=== PATIENT | female | born 1935 | race Caucasian/White ===

== ENCOUNTER 2020-02-06 15:01 | Outpatient (CLI) | payer MEDICARE, MEDICAID ==
[~2020-02-06 15:01] MED LIST: Magnevist 469MG/ML 20 ML VIAL ONE
--- NOTE | 2020-02-06 16:29 | MRI ---
MRI Low Ext No Jt Lt W WO Con History: M 79.89 other specified soft tissue disorder Comparison: CT examination January 14, 2020 Findings: Bones: No fracture. No malalignment. No marrow replacement. Cortical and medullary signal i s maintained. Normal proximal and distal tibiofibular alignment. Visualized ankle alignment and the alignment is no rmal. Musculature: No abnormal enhancement. No mass. No significant atrophy. Soft tissues: There is a mild circumferential soft tissue swelling interspersed within the fat septat ions. At the region images marker is a subtle pooling of fluid along the superficial investing musculature fascia and a small fascial defect containing small focus of soleus muscle. The neurovascular musculature is maintained. Low-grade edema within the deep fascia from third spacin g of fluid. Impression: 1. At the region of interest marker is a small superficial musculature investing fascial defect conta ining a small soleus muscle herniation, not clinically significant. 2. Circumferential soft tissue swelling the lower extremity may be sequelae of lymphedema or venous i nsufficiency and less likely cellulitis.
== END 2020-02-06 15:02 | disposition home or self-care (01) ==
LOC: BICMRI 15:01
DX: M79.89 Other specified soft tissue disorders (principal); M62.89 Other specified disorders of muscle
CPT/HCPCS: 82565; A9579

== ENCOUNTER 2020-08-11 19:18 | Inpatient (IN) | payer MEDICARE, MEDICAID ==
--- NOTE | 2020-08-11 21:04 | RAD ---
EXAM: Single view of the chest HISTORY: Unwitnessed fall. Bradycardia COMPARISON: 11/16/2008 FINDINGS: Single view of the chest shows a normal sized cardiomediastinal silhouette. Atheroscleroti c calcifications are seen in the aorta. The patient is status post sternotomy. There may be subtle opacities in the bilateral lower lobes. Degenerative changes are seen in the spine. IMPRESSION: Possible subtle bilateral lower lobe infiltrates.
--- NOTE | 2020-08-11 21:05 | RAD ---
Exam: Single view of the pelvis HISTORY: Pelvic and hip pain after fall COMPARISON: None FINDINGS: A single view the pelvis shows no evidence of acute fracture or dislocation. No degenerativ e changes seen in either hip. Moderate degenerative changes are seen in the lumbar spine. IMPRESSION: No evidence of acute osseous abnormality.
[2020-08-11 21:42] LABS: ALT (SGPT) 26 U/L (8-55); AST (SGOT) 45 U/L (5-34); Albumin 3.4 g/dL (3.4-4.8); Alkaline Phosphatase 65 U/L (40-110); Anion Gap 17 mmol/L (10-20); BUN (Urea Nitrogen) 27 mg/dL (9.8-20.1); Bilirubin, Total 0.3 mg/dL (0.2-1.2); CK (CPK) 26 U/L (29-168); Calc. Creatinine Clearance 0 mL/min (70-130); Calcium 8.8 mg/dL (7.8-10.44); Carbon Dioxide 23 mmol/L (23-31); Chloride 101 mmol/L (98-107); Globulin 3.4 g/dL (2.4-3.5); Glucose 102 mg/dL (83-110); Hemoglobin 12.6 g/dL (12.0-16.0); Mean Corpuscular HGB CONC 32.5 g/dL (32.0-36.0); Mean Corpuscular Hemoglobin 28.3 pg (27.0-31.0); Mean Platelet Volume 10.3 fL (7.4-10.4); Platelet Count 164 thou/uL (130-400); Potassium 4.4 mmol/L (3.5-5.1); Protein, Total 6.8 g/dL (6.0-8.3); RBC Distribution Width 14.4 % (11.5-14.5); Red Blood Cell (RBC) Count 4.46 mill/uL (4.20-5.40); Sodium 137 mmol/L (136-145)
[2020-08-11 22:02] LABS: Band 3 % (5-11); Eosinophils 2 % (0-10); Lymphocytes 25 % (21-51); MDiff Complete? YES; Monocytes 4 % (0-10); Neutrophil 65 % (42-75)
--- NOTE | 2020-08-11 22:08 | CT ---
EXAM: CT brain without contrast HISTORY: Fall with head trauma COMPARISON: 12/19/2008 TECHNIQUE: Multiple contiguous axial images were obtained and a CT of the brain without contrast. FINDINGS: There are scattered hypodensities in the subcortical and periventricular white matter consi stent with small vessel ischemic disease. There is no evidence of hydrocephalus, intracranial hemorrhage, or extra-axial fluid collection. The calvarium and overlying soft tissues are unremarkable. The visualized paranasal sinuses and masto id air cells are well aerated. IMPRESSION: No evidence of acute intracranial abnormality
--- NOTE | 2020-08-11 22:10 | CT ---
EXAM: CT of the cervical spine without contrast HISTORY: Fall with head trauma and neck pain COMPARISON: None TECHNIQUE: Multiple contiguous axial images were obtained in a CT of the cervical spine without contr ast. Sagittal and coronal reformats were performed. FINDINGS: The vertebral bodies and intervertebral discs demonstrate normal height and alignment witho ut fracture or subluxation. Mild degenerative changes are seen in the cervical spine. No prevertebral soft tissue swelling is seen. The posterior facets are well aligned. Normal alignment of the skull base with the cervical spine is seen. There are left carotid calcifications and a stent on the left. There may be postsurgical changes hayley cent to the right internal carotid artery. IMPRESSION: No evidence of acute osseous abnormality of the cervical spine.
--- NOTE | 2020-08-11 22:12 | CT ---
EXAM: CT of the lumbar spine without contrast HISTORY: Low back pain after fall COMPARISON: None TECHNIQUE: Multiple contiguous axial images were obtained in a CT of the lumbar spine without contras t. Sagittal and coronal reformats were performed. FINDINGS: The vertebral bodies demonstrate normal height and alignment without acute fracture or subl uxation. . Moderate degenerative changes are seen throughout the lumbar spine. There is intervertebral disc space narrowing at T12/L1, L1/2, and L4/5 with vacuum phenomenon at these levels. Surrounding osteophytes are seen. Moderate posterior facet arthrosis is seen throughout the lumbar spine. Hyperdensity is seen in the dependent aspect of the gallbladder which may represent gallstones. Ther e is a cyst in the right kidney. Atherosclerotic calcifications are seen in the aorta. There are scattered diverticula in the colon. The paraspinal soft tissues are unremarkable. IMPRESSION: Degenerative changes without evidence of acute osseous abnormality of the lumbar spine.
--- NOTE | 2020-08-12 02:44 | PDOC.HHP ---
Hospitalist HPI - History of Present Illness Fall History of Present Illness: This is an 84-year-old female patient with a history of dementia, A. fib, [place] and hypertension, carotid endarterectomy who was brought in from [facility] on account of an unwitnessed fall. It was unclear whether she had a syncopal event and how long she was down. Patient has dementia and is unable to provide any history. At the time of my evaluation she did not know that she was in the hospital otherwise she was generally stable. She denied any headache chest pain shortness of breath abdominal pain no lower extremity pain. EMS was activated and assessment of her EKG showed bradycardia. On arrival she had a chest x-ray brain CT lumbar CT pelvic cervical CTs were all negative for any acute events. CBC was generally unremarkable BMP had creatinine slightly elevated at 1.24. She was not started on any medications. Hospitalist team was consulted to admit.. Hospitalist ROS - Review of Systems Constitutional: denies: fever, chills, sweats, weakness Respiratory: denies: cough, shortness of breath, hemoptysis Gastrointestinal: denies: nausea, vomiting, abdominal pain Musculoskeletal: denies: neck pain, shoulder pain, arm pain Neurological: denies: weakness, numbness, incoordination All other systems reviewed; all pertinent +/- noted in HPI/Subj - Medication Medications: Medications: Currently refer to ambulatory orders Allergies: Honey, broke Hospitalist History - Past Medical History Other Medical History: Dementia, hypertension, carotid artery disease - Past Surgical History Other Surgical History: Carotid endarterectomy - Family History Family History: reports: no pertinent history - Social History Living Situation: [facility] Results - Labs Result Diagrams: 08/12/20 05:18 08/12/20 05:18 Lab results: WBC 9.0 thou/uL (4.8-10.8) 08/11/20 21:03 Hgb 12.6 g/dL (12.0-16.0) 08/11/20 21:03 Hct 38.8 % (36.0-47.0) 08/11/20 21:03 MCV 87.0 fL (78.0-98.0) 08/11/20 21:03 Plt Count 164 thou/uL (130-400) 08/11/20 21:03 Band Neuts % (Manual) 3 % (5-11) L 12/23/20 21:03 Sodium 137 mmol/L (136-145) 08/11/20 21:03 Potassium 4.4 mmol/L (3.5-5.1) 08/11/20 21:03 Chloride 101 mmol/L (98-107) 08/11/20 21:03 Carbon Dioxide 23 mmol/L (23-31) 08/11/20 21:03 BUN 27 mg/dL (9.8-20.1) H 08/11/20 21:03 Creatinine 1.24 mg/dL (0.6-1.1) H 08/11/20 21:03 Glucose 102 mg/dL (83-110) 08/11/20 21:03 Calcium 8.8 mg/dL (7.8-10.44) 08/11/20 21:03 Total Bilirubin 0.3 mg/dL (0.2-1.2) 08/11/20 21:03 AST 45 U/L (5-34) H 08/11/20 21:03 ALT 26 U/L (8-55) 08/11/20 21:03 Alkaline Phosphatase 65 U/L (40-110) 08/11/20 21:03 Creatine Kinase 26 U/L (29-168) L 08/11/20 21:03 Troponin I 0.010 ng/mL (< 0.028) 08/11/20 21:03 Serum Total Protein 6.8 g/dL (6.0-8.3) 08/11/20 21:03 Albumin 3.4 g/dL (3.4-4.8) 08/11/20 21:03 Hospitalist H&P A/P - Plan Plan: This is an 84-year-old female patient with a history of dementia coronary diseas e and hypertension brought in from [facility] on account of unwitnessed fall. Unwitnessed fall Mechanical versus cardiac arrhythmiahas bradycardia Admit to telemetry Orthostatic vital signs Echocardiogram in a.m. Fall precautions PT in a.m. Arrhythmia/bradycardia EKG shows possible junctional rhythm with bradycardia Monitor on telemetry Hold beta-blockers Cardiology evaluation in a.m. Hypertension BP stable Resume home meds once verified. Coronary artery disease Cardiac no chest pain Resume home meds once verified. S/p carotid endarterectomy This may have to be reevaluated if no reason found for her syncope VT prophylaxis Heparin CODE STATUSfull code
[2020-08-12] MEDS ORDERED: Ondansetron PF 4 MG/2 ML Vial IVP PRN (02:45)
[2020-08-12] MEDS ORDERED: Ondansetron ODT 4 MG TAB SL PRN (02:45)
[2020-08-12] MEDS ORDERED: Acetaminophen 325 MG TAB PO PRN (02:45)
[2020-08-12 03:50] VITALS: BMI 24.4
[2020-08-12 05:32] LABS: #Basophils 0.1 thou/uL (0.0-0.2); #Eosinphils 0.1 thou/uL (0.0-0.7); #Lymphocytes 2.1 thou/uL (1.20-3.40); %Eosinophils 1.4 % (0.0-10.0); %Lymphocytes 25.1 % (21.0-51.0); %Neutrophils 60.5 % (42.0-75.0); Hemoglobin 11.4 g/dL (12.0-16.0); Mean Corpuscular Volume 87.6 fL (78.0-98.0); Platelet Count 157 thou/uL (130-400); RBC Distribution Width 14.3 % (11.5-14.5); Red Blood Cell (RBC) Count 4.06 mill/uL (4.20-5.40); White Blood Cell (WBC) Count 8.3 thou/uL (4.8-10.8)
[2020-08-12 05:56] LABS: Anion Gap 13 mmol/L (10-20); BUN (Urea Nitrogen) 30 mg/dL (9.8-20.1); Calc. Creatinine Clearance 30 mL/min (70-130); Calcium 8.7 mg/dL (7.8-10.44); Carbon Dioxide 29 mmol/L (23-31); Chloride 101 mmol/L (98-107); Glucose 92 mg/dL (83-110); Potassium 3.9 mmol/L (3.5-5.1); Sodium 139 mmol/L (136-145)
[2020-08-12] MEDS: Sodium Chloride 0.9% 1,000 ML IV SCH (08:43)
[2020-08-12] MEDS: Heparin 5,000 UNITS/ML VIAL SC SCH ×3 (08:44→20:52)
[2020-08-12 09:50] LABS: SARS-CoV-2 MS2 Positive; SARS-CoV-2 N Gene Positive; SARS-CoV-2 S Gene Positive; SARS-CoV-2 by NAA DETECTED (NotDetected); SARS-CoV-2 orf1ab Positive
--- NOTE | 2020-08-12 11:49 | CON ---
DATE OF CONSULTATION: SUBJECTIVE: Patient is an 84-year-old woman who presented after having a fall and was noted to have a slow heart rate. The patient has a long history of coronary artery disease. She is status post coronary artery bypass graft surgery in 1998. She also has had a history of left carotid stent. The patient is unable to give any coherent history and suffers from dementia. The patient apparently was admitted with a fall. She was noted to have a slow heart rate. The patient denies having any chest discomfort. PAST MEDICAL HISTORY: 1. Cerebrovascular disease. 2. Coronary artery disease. 3. Dementia. 4. Hypertension. PAST SURGICAL HISTORY: Coronary bypass surgery,and carotid endarterectomy. MEDICATIONS: 1. Synthroid 50 mcg daily. 2. Sertraline 100 daily. 3. Potassium 10 daily. 4. Melatonin 3 at bedtime. 5. Gabapentin 100 daily. 6. Lasix 20 daily. 7. Amlodipine 5 daily. 8. Aspirin 81 daily. 9. Atenolol 50 daily. REVIEW OF SYSTEMS: Not obtainable. FAMILY HISTORY: Not obtainable. ALLERGIES: BROCCOLI AND HONEY. PHYSICAL EXAMINATION: GENERAL: Confused woman, alert and oriented x1. VITAL SIGNS: Blood pressure is 147/66 sitting, standing it dropped to 113/68. NECK: Showed no jugular venous distention. LUNGS: Clear to auscultation. HEART: Regular rate and rhythm. Normal S1, S2. ABDOMEN: Nondistended. EXTREMITIES: Show no edema. LABORATORY DATA: Sodium 139, potassium 3.9, chloride 101, bicarbonate 29, BUN 30, creatinine 1.3. White blood cell count 8.3, hemoglobin 11.4, hematocrit 35.6, and platelets 157. EKG junctional rhythm with occasional premature ventricular contractions with a nonspecific T-wave abnormality. IMPRESSION: 1. Bradycardia. 2. History of coronary bypass graft surgery. 3. Carotid endarterectomy. 4. Dementia. 5. Orthostatic hypotension. PLAN: This patient had a fall. It appears that she has significant orthostatic hypotension. The patient with her slow heart rate should be taken off atenolol. I would consider decreasing the dose of her amlodipine as well. The patient should be monitored on telemetry. She should also be placed on lipid-lowering medication. We will follow this patient with you throughout her hospitalization. Job ID: [id number] [facility]
--- NOTE | 2020-08-12 15:55 | PDOC.BPN ---
- Brief Progress Note Encounter Date: 08/12/20 Encounter Time: 15:54 Patient was seen and evaluated earlier today. This is an 84-year-old detention resident who reportedly had a fall and was brought to the hospital as a result. The fall was unwitnessed apparently. Since being admitted she has had multiple CTs and x-rays that did not show any acute findings. Her laboratory evaluation was completely normal. She was orthostatic on her vital signs. Cardiology was asked to evaluate her. They recommend optimization of her medications prior to discharge. I will get PT to work with her. We will make further recommendations as the hospital course progresses.
[2020-08-12] MEDS: Calcium Carbonate 600 MG + Vit D TAB PO SCH (20:52)
[2020-08-12] MEDS: Cholecalciferol 1,000 UNITS (25 MCG) TAB PO SCH (20:53)
[2020-08-12] MEDS ORDERED: Atorvastatin Calcium 20 MG TAB PO SCH (21:00)
[2020-08-12] MEDS ORDERED: FLU VACC QS2020-21(65YR UP)/PF 240 MCG/0.7 ML SYRINGE IM ONE (21:00)
[2020-08-12] MEDS ORDERED: Melatonin 3 MG TAB PO SCH (21:00)
[2020-08-12] MEDS ORDERED: Polyvinyl Alcohol 1.4%/Povidone 0.6% Opth Drops EA EYE SCH (21:00)
[2020-08-12] MEDS ORDERED: Famotidine 20 MG TAB PO SCH (21:00)
[2020-08-13] MEDS: Sodium Chloride 0.9% 1,000 ML IV SCH (01:44)
[2020-08-13 04:52] LABS: #Eosinphils 0.1 thou/uL (0.0-0.7); #Lymphocytes 1.6 thou/uL (1.20-3.40); #Monocytes 0.9 thou/uL (0.11-0.59); #Neutrophils 3.8 thou/uL (1.40-6.50); %Basophils 0.3 % (0.0-1.0); %Eosinophils 1.7 % (0.0-10.0); %Lymphocytes 24.9 % (21.0-51.0); %Monocytes 14.1 % (0.0-10.0); %Neutrophils 58.9 % (42.0-75.0); Hemoglobin 10.9 g/dL (12.0-16.0); Mean Corpuscular HGB CONC 31.8 g/dL (32.0-36.0); Mean Corpuscular Hemoglobin 28.1 pg (27.0-31.0); Mean Corpuscular Volume 88.4 fL (78.0-98.0); Mean Platelet Volume 10.1 fL (7.4-10.4); Platelet Count 153 thou/uL (130-400); RBC Distribution Width 14.3 % (11.5-14.5); Red Blood Cell (RBC) Count 3.87 mill/uL (4.20-5.40); White Blood Cell (WBC) Count 6.4 thou/uL (4.8-10.8)
[2020-08-13 05:19] LABS: Anion Gap 12 mmol/L (10-20); BUN (Urea Nitrogen) 22 mg/dL (9.8-20.1); Calc. Creatinine Clearance 38 mL/min (70-130); Calcium 8.1 mg/dL (7.8-10.44); Carbon Dioxide 25 mmol/L (23-31); Chloride 105 mmol/L (98-107); Glucose 85 mg/dL (83-110); Potassium 3.6 mmol/L (3.5-5.1); Sodium 138 mmol/L (136-145)
[2020-08-13] MEDS ORDERED: Levothyroxine Sodium 50 MCG TAB PO SCH (06:00)
[2020-08-13] MEDS ORDERED: Loratadine 10 MG TAB PO SCH (09:00)
[2020-08-13] MEDS ORDERED: Ascorbic Acid 500 mg Chewable Tablet PO SCH (09:00)
[2020-08-13] MEDS ORDERED: Aspirin Chewable 81 MG TAB PO SCH (09:00)
[2020-08-13] MEDS ORDERED: Potassium Chloride 10 MEQ TAB PO SCH (09:00)
[2020-08-13] MEDS ORDERED: Atenolol 25 MG TAB PO SCH (09:00)
[2020-08-13] MEDS ORDERED: Zinc Sulfate 220 MG CAP PO SCH (09:00)
[2020-08-13] MEDS ORDERED: Amlodipine 5 MG TAB PO SCH (09:00)
[2020-08-13] MEDS: Calcium Carbonate 600 MG + Vit D TAB PO SCH (09:53)
[2020-08-13] MEDS: Cholecalciferol 1,000 UNITS (25 MCG) TAB PO SCH (09:54)
[2020-08-13] MEDS: Heparin 5,000 UNITS/ML VIAL SC SCH ×2 (09:54→15:31)
[2020-08-13 12:04] VITALS: TEMP 97.7
[2020-08-13 12:30] VITALS: BP 121/62
--- NOTE | 2020-08-13 13:23 | PDOC.DS.DS ---
Provider - Provider Date of Admission: 08/12/20 14:10 Date of Discharge: 08/13/20 Admitting Provider: Allen Gold MD Consultations: Cardiology Primary Care Physician: Berny Gandhi MD Course - Hospital Course Hospital Course: This is an 84-year-old female who is a long-term resident who was admitted to the hospital after she reportedly was found on the floor. It is not clear the events leading up to her being found on the floor. She was brought here where she had multiple imaging studies that did not show any evidence of fractures or dislocations. When she arrived here she was noted to be bradycardic. And she is on atenolol twice daily. She was seen by cardiology during this visit who recommended to DC the atenolol. The patient was very orthostatic on her vital signs and this was felt to be related to volume depletion. At any rate she has remained clinically stable since admission and today we are going to discharge her home. She will be discharged back to the long-term today. We have taken the liberty to discontinue her atenolol. We discussed getting more hydrated. She is discharged today in stable condition. - Labs Lab Results: 08/13/20 04:36 08/13/20 04:36 Abnormal Lab Results - Last 48 hrs 08/11/20 21:03: BUN 27 H, Creatinine 1.24 H, AST 45 H, Creatine Kinase 26 L, Albumin/Globulin Ratio 1.0 L 08/11/20 21:03: Band Neuts % (Manual) 3 L 08/12/20 04:15: SARS-CoV-2 (PCR) DETECTED A* 08/12/20 05:18: BUN 30 H, Creatinine 1.31 H 08/12/20 05:18: RBC 4.06 L, Hgb 11.4 L, Hct 35.6 L, Monocytes % 12.0 H, Monocytes # 1.0 H 08/13/20 04:36: BUN 22 H 08/13/20 04:36: RBC 3.87 L, Hgb 10.9 L, Hct 34.2 L, MCHC 31.8 L, Monocytes % 14.1 H, Monocytes # 0.9 H - Physical Exam Vitals: Vital Signs (12 hours) Temp Pulse Resp BP BP BP BP 08/13/20 12:24 82 121/62 08/13/20 12:22 78 131/73 08/13/20 12:20 64 119/55 L 08/13/20 12:00 97.7 F 63 16 138/66 08/13/20 08:59 08/13/20 07:41 98 F 67 20 164/56 H 08/13/20 04:00 97.1 F L 61 16 118/64 Pulse Ox 08/13/20 12:24 08/13/20 12:22 08/13/20 12:20 08/13/20 12:00 97 08/13/20 08:59 95 08/13/20 07:41 93 L 08/13/20 04:00 95 Weight Admit Weight 129 lb Weight 129 lb 6.4 oz Physical Exam: The patient was seen and examined on the day of discharge. Problem - Problem (1) Fall Code(s): W19.XXXA - UNSPECIFIED FALL, INITIAL ENCOUNTER Status: Acute (2) Bradycardia Code(s): R00.1 - BRADYCARDIA, UNSPECIFIED Status: Acute (3) Orthostatic hypotension Code(s): I95.1 - ORTHOSTATIC HYPOTENSION Status: Acute (4) Arteriosclerosis of carotid artery Code(s): I65.29 - OCCLUSION AND STENOSIS OF UNSPECIFIED CAROTID ARTERY Status: Acute - Time spent with Patient (mins): 30 Plan - Discharge Medications Prescriptions: Atorvastatin Calcium [Lipitor] 20 mg PO HS #30 tab Home Medications: Medication Instructions Recorded Confirmed Type Aspirin Chewable [Aspirin Chewable 81 mg PO DAILY 02/22/15 08/12/20 History Tablet] Sertraline HCl 100 mg PO DAILY 02/22/15 08/12/20 History Amlodipine [Norvasc] 5 mg PO DAILY 08/12/20 08/12/20 History Artificial Tears [Tears Naturale 2 drop EA EYE HS 08/12/20 08/12/20 History Free] Calcium Carbonate/Vitamin D3 1 tab PO BID 08/12/20 08/12/20 History [Calcium 600 + Vitamin D 400 Softgel] Cholecalciferol (Vitamin D3) 25 mcg PO BID 08/12/20 08/12/20 History [Vitamin D3] Famotidine [Pepcid] 20 mg PO HS 08/12/20 08/12/20 History Fluticasone Propionate [Flonase 2 spray EA NARE DAILY 08/12/20 08/12/20 History Nasal [place]] Furosemide [Lasix] 20 mg PO DAILY PRN 08/12/20 08/12/20 History Gabapentin 100 mg PO DAILY 08/12/20 08/12/20 History Levothyroxine Sodium 50 mcg PO DAILY 08/12/20 08/12/20 History [Levothyroxine] Loratadine [Claritin] 10 mg PO DAILY 08/12/20 08/12/20 History Melatonin 3 mg PO HS 08/12/20 08/12/20 History Potassium Chloride [Klor-Con 10] 10 meq PO DAILY 08/12/20 08/12/20 History Atorvastatin Calcium [Lipitor] 20 mg PO HS #30 tab 08/13/20 Rx Calcium Carbonate + Vit D 1 tab PO BID tab 08/13/20 Rx [Caltrate 600 + Vit D] Sertraline HCl [Zoloft] 100 mg PO DAILY tab 08/13/20 Rx Allergies: broccoli Adverse Reaction (Verified 11/08/19 11:32) GI upset raw honey Adverse Reaction (Verified 11/08/19 11:32) GI upset - Follow up Plan Referrals: Berny Gandhi MD [Primary Care Provider] - Disposition: [facility] Quality - Care Measures CORE MEASURES:: N/A
== END 2020-08-13 16:04 | DRG 312 ==
LOC: ERS 19:18 → 2SE 23:57 → OBSVTOIN 08-12 14:10
PROVIDERS: ADMIT Student in an Organized Health Care Education/Training Program; ATTEND Hospitalist
DX: I95.1 Orthostatic hypotension (principal); R00.1 Bradycardia, unspecified; F03.90 Unspecified dementia, unspecified severity, without behavioral disturbance, psychotic disturbance, mood disturbance, and anxiety; I48.91 Unspecified atrial fibrillation; E78.5 Hyperlipidemia, unspecified; F32.9 Major depressive disorder, single episode, unspecified; I25.10 Atherosclerotic heart disease of native coronary artery without angina pectoris; Z91.018 Allergy to other foods; Z86.73 Personal history of transient ischemic attack (TIA), and cerebral infarction without residual deficits; Z79.82 Long term (current) use of aspirin; Z79.890 Hormone replacement therapy; Z79.899 Other long term (current) drug therapy; W19.XXXA Unspecified fall, initial encounter
CPT/HCPCS: 36415; 70450; 71045; 72125; 72131; 72170; 80048; 80053; 82550; 84484; 85025; 87635; 93005; 93306; J1644; U0003

== ENCOUNTER 2022-01-06 21:06 | Emergency (ER) | payer OTHER, MEDICARE, MEDICAID | END 2022-01-07 00:18 | disposition home or self-care (01) | LOC: ERS 21:06 | DX: S01.01XA Laceration without foreign body of scalp, initial encounter (principal); M54.2 Cervicalgia; M54.9 Dorsalgia, unspecified; I10 Essential (primary) hypertension; I48.91 Unspecified atrial fibrillation; E78.5 Hyperlipidemia, unspecified; F03.90 Unspecified dementia, unspecified severity, without behavioral disturbance, psychotic disturbance, mood disturbance, and anxiety; W01.0XXA Fall on same level from slipping, tripping and stumbling without subsequent striking against object, initial encounter; Y92.129 Unspecified place in nursing home as the place of occurrence of the external cause | CPT/HCPCS: 70450; 72125 ==

== ENCOUNTER 2022-01-24 14:29 | Inpatient (IN) | payer MEDICARE, MEDICAID ==
[2022-01-24 15:01] LABS: #Lymphocytes 1.2 thou/uL (1.20-3.40); #Monocytes 0.5 thou/uL (0.11-0.59); #Neutrophils 7.6 thou/uL (1.40-6.50); %Basophils 0.2 % (0.0-1.0); %Eosinophils 0.5 % (0.0-10.0); %Lymphocytes 12.5 % (21.0-51.0); %Monocytes 4.8 % (0.0-10.0); Hemoglobin 11.7 g/dL (12.0-16.0); Mean Corpuscular HGB CONC 32.4 g/dL (32.0-36.0); Mean Corpuscular Hemoglobin 30.4 pg (27.0-31.0); Mean Corpuscular Volume 93.9 fL (78.0-98.0); Mean Platelet Volume 8.2 fL (7.4-10.4); Platelet Count 181 thou/uL (130-400); RBC Distribution Width 14.1 % (11.5-14.5); Red Blood Cell (RBC) Count 3.85 mill/uL (4.20-5.40); White Blood Cell (WBC) Count 9.2 thou/uL (4.8-10.8)
[2022-01-24 15:10] LABS: Bacteria/HPF 1+ HPF (None Seen); Bilirubin Negative (Negative); Blood, Urine Negative (Negative); Clarity Clear (Clear); Glucose, Urine (Dipstick) Normal (Negative); Ketone, Urine Negative (Negative); Leukocyte 25 Leu/uL (Negative); Nitrite Negative (Negative); Protein, Urine (Dipstick) Negative (Neg-Trace); RBC/HPF None Seen HPF (0-3); Specific Gravity, Urine 1.013 (1.002-1.036); Squamous Epithelial 0-3 HPF (0-3); Urobilinogen Normal mg/dL (Less than 2)
[2022-01-24 15:28] LABS: ALT (SGPT) 99 U/L (8-55); AST (SGOT) 94 U/L (5-34); Albumin 3.9 g/dL (3.4-4.8); Alkaline Phosphatase 100 U/L (40-110); Anion Gap 16 mmol/L (10-20); BUN (Urea Nitrogen) 26 mg/dL (9.8-20.1); Bilirubin, Total 1.1 mg/dL (0.2-1.2); Calc. Creatinine Clearance 0 mL/min (70-130); Calcium 8.6 mg/dL (7.8-10.44); Carbon Dioxide 22 mmol/L (23-31); Chloride 105 mmol/L (98-107); Globulin 2.7 g/dL (2.4-3.5); Glucose 119 mg/dL (83-110); Potassium 4.4 mmol/L (3.5-5.1); Protein, Total 6.6 g/dL (5.8-8.1); Sodium 139 mmol/L (136-145)
[2022-01-24] MEDS ORDERED: cefTRIAXone\\ROCEPHIN 1 GM VIAL ONE (15:53)
[2022-01-24] MEDS ORDERED: Furosemide 40 MG/4 ML VIAL ONE (15:55)
[2022-01-24] MEDS ORDERED: Azithromycin 500 MG VIAL ONE (17:01)
[2022-01-24] MEDS ORDERED: GUAIFENESIN SF SOLN 200 MG/10 ML UDCUP PO PRN (19:07)
[2022-01-24 19:09] VITALS: BMI 24.5
[2022-01-24] MEDS: Benzonatate 100 MG CAP PO SCH (21:37)
[2022-01-24] MEDS: Heparin 5,000 UNITS/ML VIAL SC SCH (21:37)
[2022-01-25 04:25] LABS: #Basophils 0.1 thou/uL (0.0-0.2); #Eosinphils 0.1 thou/uL (0.0-0.7); #Lymphocytes 2.8 thou/uL (1.20-3.40); #Monocytes 1.2 thou/uL (0.11-0.59); #Neutrophils 5.7 thou/uL (1.40-6.50); %Basophils 0.5 % (0.0-1.0); %Eosinophils 1.2 % (0.0-10.0); %Lymphocytes 28.6 % (21.0-51.0); %Monocytes 11.6 % (0.0-10.0); %Neutrophils 58.1 % (42.0-75.0); Hemoglobin 10.7 g/dL (12.0-16.0); Mean Corpuscular HGB CONC 31.4 g/dL (32.0-36.0); Mean Corpuscular Hemoglobin 29.9 pg (27.0-31.0); Mean Corpuscular Volume 95.2 fL (78.0-98.0); Mean Platelet Volume 8.5 fL (7.4-10.4); Platelet Count 161 thou/uL (130-400); RBC Distribution Width 13.9 % (11.5-14.5); Red Blood Cell (RBC) Count 3.59 mill/uL (4.20-5.40); White Blood Cell (WBC) Count 9.9 thou/uL (4.8-10.8)
[2022-01-25 04:46] LABS: ALT (SGPT) 81 U/L (8-55); AST (SGOT) 80 U/L (5-34); Albumin 3.4 g/dL (3.4-4.8); Alkaline Phosphatase 85 U/L (40-110); Anion Gap 13 mmol/L (10-20); BUN (Urea Nitrogen) 26 mg/dL (9.8-20.1); Bilirubin, Total 0.8 mg/dL (0.2-1.2); Calc. Creatinine Clearance 39 mL/min (70-130); Carbon Dioxide 27 mmol/L (23-31); Chloride 104 mmol/L (98-107); Globulin 2.4 g/dL (2.4-3.5); Glucose 83 mg/dL (83-110); Potassium 3.6 mmol/L (3.5-5.1); Protein, Total 5.8 g/dL (5.8-8.1); Sodium 140 mmol/L (136-145)
[2022-01-25] MEDS: Furosemide 20 MG/2 ML VIAL SLOW IVP SCH ×2 (06:00→14:36)
[2022-01-25] MEDS: Benzonatate 100 MG CAP PO SCH ×3 (08:34→21:59)
[2022-01-25] MEDS: Aspirin Chewable 81 MG TAB PO SCH (08:34)
[2022-01-25] MEDS: Heparin 5,000 UNITS/ML VIAL SC SCH ×2 (08:34→21:58)
[2022-01-25] MEDS ORDERED: traMADol HCl 50 MG TAB PO PRN (08:42)
[2022-01-25] MEDS ORDERED: Non-Formulary Item 1 EACH (Levothyroxine Sodium [Levothyroxine] 25 MCG Capsule) PO SCH (09:00)
[2022-01-25] MEDS ORDERED: Non-Formulary Item 1 EACH (Risedronate Sodium [Risedronate Sodium] 35 MG Tablet) PO SCH (09:00)
[2022-01-25] MEDS ORDERED: CARBOXYMETHYLCELLULOS EA EYE SCH (09:00)
[2022-01-25] MEDS ORDERED: [UNRECOGNIZED DRUG - OTHER] EA EYE SCH (09:00)
[2022-01-25] MEDS ORDERED: GLYCERIN EA EYE SCH (09:00)
[2022-01-25] MEDS ORDERED: Non-Formulary Item 1 EACH (Omeprazole [Omeprazole] 20 MG Capsule.Dr) PO SCH (09:00)
[2022-01-25] MEDS ORDERED: Non-Formulary Item 1 EACH (Fluticasone Propionate [Flonase Allergy Relief] 9.9 ML Bottle) NASAL SCH (09:00)
[2022-01-25] MEDS: Gabapentin 100 MG CAP PO SCH (10:21)
[2022-01-25] MEDS: Polyvinyl Alcohol 1.4%/Povidone 0.6% Opth Drops EA EYE SCH ×2 (10:22→22:51)
[2022-01-25] MEDS: Fluticasone Propionate Nasal Spray 16 gm Bottle NASAL SCH (10:23)
[2022-01-25] MEDS ORDERED: Metoprolol Tartrate 25 MG TAB PO SCH (11:00)
[2022-01-25] MEDS: cefTRIAXone\\ROCEPHIN 1 GM in Sodium Chloride 0.9% 100 ML IVPB SCH (14:36)
[2022-01-25] MEDS ORDERED: Azithromycin 500 MG in Sodium Chloride 0.9% 250 ML 250 ML IVPB SCH (17:00)
[2022-01-25] MEDS ORDERED: MELATONIN 3 MG PO SCH (21:00)
[2022-01-25] MEDS: Melatonin 3 MG TAB PO SCH (21:58)
[2022-01-25] MEDS: Lisinopril 5 MG TAB PO SCH (21:59)
[2022-01-26 04:31] LABS: #Eosinphils 0.2 thou/uL (0.0-0.7); #Lymphocytes 2.4 thou/uL (1.20-3.40); #Monocytes 1.2 thou/uL (0.11-0.59); #Neutrophils 5.1 thou/uL (1.40-6.50); %Basophils 0.5 % (0.0-1.0); %Eosinophils 2.3 % (0.0-10.0); %Lymphocytes 26.9 % (21.0-51.0); %Monocytes 13.4 % (0.0-10.0); %Neutrophils 56.9 % (42.0-75.0); Hemoglobin 10.5 g/dL (12.0-16.0); Mean Corpuscular Hemoglobin 30.4 pg (27.0-31.0); Mean Corpuscular Volume 94.9 fL (78.0-98.0); Mean Platelet Volume 8.1 fL (7.4-10.4); Platelet Count 170 thou/uL (130-400); RBC Distribution Width 14.3 % (11.5-14.5); Red Blood Cell (RBC) Count 3.47 mill/uL (4.20-5.40); White Blood Cell (WBC) Count 8.9 thou/uL (4.8-10.8)
[2022-01-26 04:46] LABS: Troponin I Less than 0.010 ng/mL (< 0.028)
[2022-01-26 05:05] LABS: Anion Gap 13 mmol/L (10-20); BUN (Urea Nitrogen) 24 mg/dL (9.8-20.1); Calc. Creatinine Clearance 40 mL/min (70-130); Calcium 8.3 mg/dL (7.8-10.44); Carbon Dioxide 28 mmol/L (23-31); Chloride 104 mmol/L (98-107); Glucose 95 mg/dL (83-110); Potassium 3.5 mmol/L (3.5-5.1); Sodium 141 mmol/L (136-145)
[2022-01-26] MEDS: Levothyroxine Sodium 88 MCG TAB PO SCH (06:32)
[2022-01-26] MEDS: Furosemide 20 MG/2 ML VIAL SLOW IVP SCH (06:32)
[2022-01-26] MEDS: Aspirin Chewable 81 MG TAB PO SCH (09:08)
[2022-01-26] MEDS: Heparin 5,000 UNITS/ML VIAL SC SCH ×2 (09:08→21:29)
[2022-01-26] MEDS: Fluticasone Propionate Nasal Spray 16 gm Bottle NASAL SCH (09:08)
[2022-01-26] MEDS: Benzonatate 100 MG CAP PO SCH ×3 (09:08→21:28)
[2022-01-26] MEDS: Lisinopril 5 MG TAB PO SCH ×2 (09:09→21:28)
[2022-01-26] MEDS: Gabapentin 100 MG CAP PO SCH (09:09)
[2022-01-26] MEDS: Spironolactone 25 MG TAB PO SCH (09:09)
[2022-01-26] MEDS: Furosemide 20 MG TAB PO SCH (09:09)
[2022-01-26] MEDS: Empagliflozin 10 MG TAB PO SCH (09:11)
[2022-01-26] MEDS: Polyvinyl Alcohol 1.4%/Povidone 0.6% Opth Drops EA EYE SCH ×2 (09:12→21:29)
[2022-01-26] MEDS: cefTRIAXone\\ROCEPHIN 1 GM in Sodium Chloride 0.9% 100 ML IVPB SCH (14:04)
[2022-01-26] MEDS: Melatonin 3 MG TAB PO SCH (21:28)
[2022-01-27 04:54] LABS: #Basophils 0.1 thou/uL (0.0-0.2); #Eosinphils 0.3 thou/uL (0.0-0.7); #Lymphocytes 2.7 thou/uL (1.20-3.40); #Neutrophils 4.7 thou/uL (1.40-6.50); %Basophils 0.6 % (0.0-1.0); %Eosinophils 3.8 % (0.0-10.0); %Lymphocytes 30.5 % (21.0-51.0); %Monocytes 11.5 % (0.0-10.0); %Neutrophils 53.5 % (42.0-75.0); Hemoglobin 11.6 g/dL (12.0-16.0); Mean Corpuscular HGB CONC 31.4 g/dL (32.0-36.0); Mean Corpuscular Hemoglobin 30.2 pg (27.0-31.0); Mean Corpuscular Volume 96.3 fL (78.0-98.0); Mean Platelet Volume 8.2 fL (7.4-10.4); Platelet Count 180 thou/uL (130-400); RBC Distribution Width 14.4 % (11.5-14.5); Red Blood Cell (RBC) Count 3.84 mill/uL (4.20-5.40); White Blood Cell (WBC) Count 8.8 thou/uL (4.8-10.8)
[2022-01-27] MEDS: Levothyroxine Sodium 88 MCG TAB PO SCH (05:24)
[2022-01-27 05:27] LABS: Anion Gap 12 mmol/L (10-20); BUN (Urea Nitrogen) 19 mg/dL (9.8-20.1); Calc. Creatinine Clearance 41 mL/min (70-130); Calcium 8.2 mg/dL (7.8-10.44); Carbon Dioxide 27 mmol/L (23-31); Chloride 104 mmol/L (98-107); Glucose 85 mg/dL (83-110); Potassium 3.5 mmol/L (3.5-5.1); Sodium 139 mmol/L (136-145)
[2022-01-27] MEDS: Fluticasone Propionate Nasal Spray 16 gm Bottle NASAL SCH (09:15)
[2022-01-27] MEDS: Heparin 5,000 UNITS/ML VIAL SC SCH (09:15)
[2022-01-27] MEDS: Polyvinyl Alcohol 1.4%/Povidone 0.6% Opth Drops EA EYE SCH (09:15)
[2022-01-27] MEDS: Lisinopril 5 MG TAB PO SCH (09:15)
[2022-01-27] MEDS: Empagliflozin 10 MG TAB PO SCH (09:17)
[2022-01-27] MEDS: Furosemide 20 MG TAB PO SCH (09:17)
[2022-01-27] MEDS: Gabapentin 100 MG CAP PO SCH (09:17)
[2022-01-27] MEDS: Benzonatate 100 MG CAP PO SCH ×2 (09:18→14:29)
[2022-01-27] MEDS: Spironolactone 25 MG TAB PO SCH (09:18)
[2022-01-27] MEDS: Aspirin Chewable 81 MG TAB PO SCH (09:18)
[2022-01-27 11:44] VITALS: TEMP 98.7
[2022-01-27 11:54] VITALS: BP 128/62
[2022-01-27] MEDS: cefTRIAXone\\ROCEPHIN 1 GM in Sodium Chloride 0.9% 100 ML IVPB SCH (14:28)
== END 2022-01-27 17:30 | DRG 291 ==
LOC: ERS 14:29 → 2NO 16:03
PROVIDERS: ADMIT Internal Medicine; ATTEND Internal Medicine
DX: I11.0 Hypertensive heart disease with heart failure (principal); I50.23 Acute on chronic systolic (congestive) heart failure; J18.9 Pneumonia, unspecified organism; N39.0 Urinary tract infection, site not specified; I48.21 Permanent atrial fibrillation; F03.90 Unspecified dementia, unspecified severity, without behavioral disturbance, psychotic disturbance, mood disturbance, and anxiety; R29.6 Repeated falls; E03.9 Hypothyroidism, unspecified; K21.9 Gastro-esophageal reflux disease without esophagitis; F32.A Depression, unspecified; R79.89 Other specified abnormal findings of blood chemistry; I25.10 Atherosclerotic heart disease of native coronary artery without angina pectoris; I08.1 Rheumatic disorders of both mitral and tricuspid valves; I95.1 Orthostatic hypotension; Z91.81 History of falling; Z91.018 Allergy to other foods; Z79.899 Other long term (current) drug therapy; Z79.82 Long term (current) use of aspirin; Z98.890 Other specified postprocedural states; Z95.1 Presence of aortocoronary bypass graft; Z86.73 Personal history of transient ischemic attack (TIA), and cerebral infarction without residual deficits; Z79.51 Long term (current) use of inhaled steroids; Z98.49 Cataract extraction status, unspecified eye; Z79.890 Hormone replacement therapy
CPT/HCPCS: 36415; 51701; 71045; 71250; 80048; 80053; 81003; 81015; 83605; 83880; 84443; 84484; 85025; 87040; 87086; 93005; 93306; 96365; 96367; 96368; 96375; 96376; 97139; J0456; J0696; J1644; J1940; J3490; U0003; U0005

== ENCOUNTER 2022-08-14 20:32 | Emergency (ER) | payer MEDICARE, MEDICAID ==
[2022-08-14 21:16] LABS: Mean Corpuscular Hemoglobin 32.6 pg (27.0-31.0); Mean Corpuscular Volume 98.8 fl (78.0-98.0); RBC Distribution Width 12.6 % (11.5-14.5); Red Blood Cell (RBC) Count 3.69 mill/uL (4.20-5.40); White Blood Cell (WBC) Count 9.7 10x3/uL (4.8-10.8)
[2022-08-14 21:32] LABS: ALT (SGPT) 10 U/L (8-55); AST (SGOT) 21 U/L (5-34); Albumin 3.8 g/dL (3.4-4.8); Alkaline Phosphatase 60 U/L (40-110); Anion Gap 12 mmol/L (10-20); BUN (Urea Nitrogen) 34 mg/dL (9.8-20.1); Bilirubin, Total 0.2 mg/dL (0.2-1.2); Calc. Creatinine Clearance 0 mL/min (70-130); Calcium 8.7 mg/dL (7.8-10.44); Carbon Dioxide 28 mmol/L (23-31); Chloride 106 mmol/L (98-107); Estimated GFR 39; Globulin 2.3 g/dL (2.4-3.5); Glucose 98 mg/dL (83-110); Potassium 4.2 mmol/L (3.5-5.1); Protein, Total 6.1 g/dL (5.8-8.1); Sodium 142 mmol/L (136-145)
[2022-08-14 21:39] LABS: Eosinophils 6 % (0-10); Lymphocytes 57 % (21-51); MDiff Complete? YES; Macrocytosis SLIGHT = 6-15 cells (100X) (0-5/hpf); Monocytes 4 % (0-10); Neutrophil 32 % (42-75); Ovalocytes SLIGHT = 2-5 cells (100X) (0-1/hpf); Platelet Count 108 10x3/uL (130-400); Platelet Morphology Comment Appears Decreased
[2022-08-14 22:02] LABS: SARS-CoV-2 NAA Rapid Test Not Detected (NotDetected)
[2022-08-14 22:22] LABS: Bilirubin Negative (Negative); Blood, Urine Negative (Negative); Clarity Clear (Clear); Glucose, Urine (Dipstick) Normal (Negative); Ketone, Urine Negative (Negative); Leukocyte Negative Leu/uL (Negative); Nitrite Negative (Negative); Protein, Urine (Dipstick) Negative (Neg-Trace); Urobilinogen Normal mg/dL (Less than 2); pH, Urine 5.5 (5.0-9.0)
== END 2022-08-15 00:04 ==
LOC: ERS 20:32
DX: S00.03XA Contusion of scalp, initial encounter (principal); E11.22 Type 2 diabetes mellitus with diabetic chronic kidney disease; N18.9 Chronic kidney disease, unspecified; I12.9 Hypertensive chronic kidney disease with stage 1 through stage 4 chronic kidney disease, or unspecified chronic kidney disease; R79.89 Other specified abnormal findings of blood chemistry; M50.30 Other cervical disc degeneration, unspecified cervical region; D69.6 Thrombocytopenia, unspecified; E78.5 Hyperlipidemia, unspecified; K21.9 Gastro-esophageal reflux disease without esophagitis; E03.9 Hypothyroidism, unspecified; W18.30XA Fall on same level, unspecified, initial encounter; Z20.822 Contact with and (suspected) exposure to COVID-19
CPT/HCPCS: 0240U; 70450; 71045; 72125; 72131; 73502; 80053; 81003; 83880; 84484; 85025; 93005; 94760; 36415

== ENCOUNTER 2022-10-11 09:38 | Inpatient (IN) | payer MEDICARE, MEDICAID ==
[2022-10-11] MEDS ORDERED: Sodium Chloride 0.9% 1,000 ML IV SCH (10:15)
[2022-10-11 10:21] LABS: #Basophils 0.1 thou/uL (0.0-0.2); #Eosinphils 0.1 thou/uL (0.0-0.7); #Lymphocytes 2.8 thou/uL (1.20-3.40); #Monocytes 1.5 thou/uL (0.11-0.59); #Neutrophils 6.7 thou/uL (1.40-6.50); %Basophils 0.5 % (0.0-1.0); %Eosinophils 0.9 % (0.0-10.0); %Lymphocytes 25.2 % (21.0-51.0); %Monocytes 13.4 % (0.0-10.0); Hemoglobin 14.1 g/dL (12.0-16.0); Mean Corpuscular HGB CONC 32.9 g/dL (32.0-36.0); Mean Corpuscular Hemoglobin 32.4 pg (27.0-31.0); Mean Corpuscular Volume 98.5 fl (78.0-98.0); Mean Platelet Volume 10.1 fL (7.4-10.4); Platelet Count 110 10x3/uL (130-400); RBC Distribution Width 12.3 % (11.5-14.5); Red Blood Cell (RBC) Count 4.34 mill/uL (4.20-5.40); White Blood Cell (WBC) Count 11.2 10x3/uL (4.8-10.8)
[2022-10-11 10:38] LABS: Bilirubin Negative (Negative); Blood, Urine Negative (Negative); Clarity Clear (Clear); Glucose, Urine (Dipstick) Normal (Negative); Ketone, Urine Negative (Negative); Leukocyte Negative Leu/uL (Negative); Nitrite Negative (Negative); Protein, Urine (Dipstick) Negative (Neg-Trace); Specific Gravity, Urine 1.018 (1.002-1.036); Urobilinogen Normal mg/dL (Less than 2)
[2022-10-11 10:48] LABS: ALT (SGPT) 8 U/L (8-55); AST (SGOT) 27 U/L (5-34); Albumin 3.9 g/dL (3.4-4.8); Alkaline Phosphatase 63 U/L (40-110); Anion Gap 17 mmol/L (10-20); BUN (Urea Nitrogen) 50 mg/dL (9.8-20.1); Bilirubin, Total 0.5 mg/dL (0.2-1.2); Calc. Creatinine Clearance 0 mL/min (70-130); Calcium 9.8 mg/dL (7.8-10.44); Carbon Dioxide 22 mmol/L (23-31); Chloride 102 mmol/L (98-107); Estimated GFR 43; Globulin 3.2 g/dL (2.4-3.5); Glucose 86 mg/dL (83-110); Potassium 5.8 mmol/L (3.5-5.1); Protein, Total 7.1 g/dL (5.8-8.1); Sodium 135 mmol/L (136-145)
[2022-10-11 12:13] LABS: SARS-CoV-2 NAA Rapid Test DETECTED (NotDetected)
[2022-10-11 12:53] LABS: Troponin I 0.017 ng/mL (< 0.028)
[2022-10-11] MEDS ORDERED: Albuterol 200 PUFF (6.7GM INHALER) INH PRN (13:06)
[2022-10-11] MEDS: Lactated Ringer's 1,000 ML IV SCH (13:46)
[2022-10-11 14:45] LABS: Potassium 5.3 mmol/L (3.5-5.1)
[2022-10-11 15:28] LABS: Troponin I Less than 0.010 ng/mL (< 0.028)
[2022-10-11] MEDS ORDERED: Metoprolol Tartrate 25 MG TAB PO SCH (18:45)
[2022-10-11] MEDS ORDERED: Vancomycin 1 GM in Premix Bag 1 BAG IVPB SCH ×2 (21:00→22:45)
[2022-10-11] MEDS: Atorvastatin Calcium 20 MG TAB PO SCH (21:01)
[2022-10-11] MEDS: Cefepime 2 GM in Sodium Chloride 0.9% 100 ML IVPB SCH (21:01)
[2022-10-11] MEDS: Lisinopril 5 MG TAB PO SCH (21:02)
[2022-10-11 22:05] VITALS: BMI 23.2
[2022-10-11] MEDS ORDERED: Vancomycin Dose by Levels Sliding Scale (Wt <71) FS SCH (22:45)
[2022-10-12] MEDS ORDERED: Metoprolol Tartrate 5 MG/5 ML VIAL IVP SCH (03:30)
[2022-10-12] MEDS: Lactated Ringer's 1,000 ML IV SCH (04:05)
[2022-10-12] MEDS ORDERED: Ondansetron PF 4 MG/2 ML Vial IVP PRN (05:03)
[2022-10-12 05:55] LABS: #Eosinphils 0.2 thou/uL (0.0-0.7); #Lymphocytes 1.9 thou/uL (1.20-3.40); #Monocytes 1.6 thou/uL (0.11-0.59); %Basophils 0.4 % (0.0-1.0); %Eosinophils 1.3 % (0.0-10.0); %Lymphocytes 14.7 % (21.0-51.0); %Monocytes 12.4 % (0.0-10.0); %Neutrophils 71.3 % (42.0-75.0); Hemoglobin 12.8 g/dL (12.0-16.0); Mean Corpuscular HGB CONC 33.8 g/dL (32.0-36.0); Mean Corpuscular Hemoglobin 33.2 pg (27.0-31.0); Mean Corpuscular Volume 98.2 fl (78.0-98.0); Mean Platelet Volume 10.8 fL (7.4-10.4); Platelet Count 105 10x3/uL (130-400); RBC Distribution Width 12.2 % (11.5-14.5); Red Blood Cell (RBC) Count 3.84 mill/uL (4.20-5.40); White Blood Cell (WBC) Count 12.7 10x3/uL (4.8-10.8)
[2022-10-12] MEDS: Levothyroxine Sodium 88 MCG TAB PO SCH (06:01)
[2022-10-12 06:19] LABS: Anion Gap 16 mmol/L (10-20); BUN (Urea Nitrogen) 31 mg/dL (9.8-20.1); Calc. Creatinine Clearance 43 mL/min (70-130); Calcium 9.1 mg/dL (7.8-10.44); Carbon Dioxide 19 mmol/L (23-31); Chloride 104 mmol/L (98-107); Estimated GFR 72; Glucose 111 mg/dL (83-110); Potassium 4.3 mmol/L (3.5-5.1); Sodium 135 mmol/L (136-145)
[2022-10-12] MEDS: Aspirin Chewable 81 MG TAB PO SCH (09:40)
[2022-10-12] MEDS: Metoprolol Tartrate 25 MG TAB PO SCH ×2 (09:40→21:06)
[2022-10-12] MEDS: Famotidine 20 MG TAB PO SCH (09:40)
[2022-10-12] MEDS: Lisinopril 5 MG TAB PO SCH ×2 (09:40→21:06)
[2022-10-12] MEDS: Cefepime 2 GM in Sodium Chloride 0.9% 100 ML IVPB SCH ×2 (09:42→20:31)
[2022-10-12] MEDS ORDERED: levETIRAcetam 500 MG/5 ML VIAL SLOW IVP SCH ×2 (15:00→21:00)
[2022-10-12] MEDS ORDERED: LEVETIRACETAM IVPB SCH ×2 (15:15→21:00)
[2022-10-12] MEDS ORDERED: levETIRAcetam 750 MG, Admixture Fee 1 EACH in Sodium Chloride 0.9% 100 ML IVPB SCH (15:15)
[2022-10-12] MEDS ORDERED: SODIUM CHLORIDE IVPB SCH ×2 (15:15→21:00)
[2022-10-12] MEDS ORDERED: ADMIXTURE FEE IVPB SCH ×2 (15:15→21:00)
[2022-10-12] MEDS: Atorvastatin Calcium 20 MG TAB PO SCH (20:32)
[2022-10-12] MEDS: levETIRAcetam 750 MG, Admixture Fee 1 EACH in Sodium Chloride 0.9% 100 ML IVPB SCH (21:05)
[2022-10-13] LABS: Vancomycin, Random 6.7 ug/mL (See Comment)
[2022-10-13] MEDS ORDERED: Vancomycin 1 GM in Premix Bag 1 BAG IVPB SCH (01:00)
[2022-10-13 05:10] LABS: Hemoglobin 11.7 g/dL (12.0-16.0); Mean Corpuscular HGB CONC 33.5 g/dL (32.0-36.0); Mean Corpuscular Hemoglobin 33.2 pg (27.0-31.0); Mean Corpuscular Volume 98.9 fl (78.0-98.0); Platelet Count 96 10x3/uL (130-400); RBC Distribution Width 12.2 % (11.5-14.5); Red Blood Cell (RBC) Count 3.53 mill/uL (4.20-5.40); White Blood Cell (WBC) Count 12.3 10x3/uL (4.8-10.8)
[2022-10-13] MEDS: Levothyroxine Sodium 88 MCG TAB PO SCH (05:12)
[2022-10-13 05:24] LABS: Anion Gap 12 mmol/L (10-20); BUN (Urea Nitrogen) 28 mg/dL (9.8-20.1); Calc. Creatinine Clearance 41 mL/min (70-130); Calcium 8.8 mg/dL (7.8-10.44); Carbon Dioxide 23 mmol/L (23-31); Chloride 107 mmol/L (98-107); Estimated GFR 68; Glucose 89 mg/dL (83-110); Potassium 3.8 mmol/L (3.5-5.1); Sodium 138 mmol/L (136-145)
[2022-10-13 05:41] LABS: Band 7 % (5-11); Eosinophils 1 % (0-10); Lymphocytes 32 % (21-51); MDiff Complete? YES; Monocytes 8 % (0-10); Neutrophil 51 % (42-75); Platelet Morphology Comment Appears Decreased
[2022-10-13] MEDS: Cefepime 2 GM in Sodium Chloride 0.9% 100 ML IVPB SCH (10:47)
[2022-10-13] MEDS: Aspirin Chewable 81 MG TAB PO SCH (10:48)
[2022-10-13] MEDS: Lisinopril 5 MG TAB PO SCH ×2 (10:49→22:26)
[2022-10-13] MEDS: Metoprolol Tartrate 25 MG TAB PO SCH ×2 (10:49→22:25)
[2022-10-13] MEDS: Famotidine 20 MG TAB PO SCH (10:49)
[2022-10-13] MEDS: levETIRAcetam 750 MG, Admixture Fee 1 EACH in Sodium Chloride 0.9% 100 ML IVPB SCH (10:50)
[2022-10-13] MEDS ORDERED: Metoprolol Tartrate 25 MG TAB PO SCH ×2 (13:05→13:15)
[2022-10-13] MEDS ORDERED: Metoprolol Tartrate 50 MG TAB PO SCH (13:15)
[2022-10-13] MEDS ORDERED: Benzonatate 100 MG CAP PO PRN (15:28)
[2022-10-13] MEDS ORDERED: Loratadine 10 MG TAB PO PRN (15:28)
[2022-10-13] MEDS: traMADol HCl 50 MG TAB PO SCH (22:24)
[2022-10-13] MEDS: Melatonin 3 MG TAB PO SCH (22:25)
[2022-10-13] MEDS: Atorvastatin Calcium 20 MG TAB PO SCH (22:25)
[2022-10-13] MEDS: Mirtazapine 15 MG TAB PO SCH (22:25)
[2022-10-13] MEDS: Divalproex Sodium 125 mg Sprinkle Capsule PO SCH (22:48)
[2022-10-14 05:57] LABS: Hemoglobin 11.3 g/dL (12.0-16.0); Mean Corpuscular HGB CONC 34.1 g/dL (32.0-36.0); Mean Corpuscular Hemoglobin 33.5 pg (27.0-31.0); Mean Corpuscular Volume 98.5 fl (78.0-98.0); Mean Platelet Volume 9.7 fL (7.4-10.4); Platelet Count 109 10x3/uL (130-400); Red Blood Cell (RBC) Count 3.36 mill/uL (4.20-5.40); White Blood Cell (WBC) Count 8.4 10x3/uL (4.8-10.8)
[2022-10-14 06:07] LABS: Anion Gap 14 mmol/L (10-20); BUN (Urea Nitrogen) 23 mg/dL (9.8-20.1); Calc. Creatinine Clearance 48 mL/min (70-130); Calcium 8.7 mg/dL (7.8-10.44); Carbon Dioxide 23 mmol/L (23-31); Chloride 108 mmol/L (98-107); Estimated GFR 83; Glucose 73 mg/dL (83-110); Potassium 3.6 mmol/L (3.5-5.1); Sodium 141 mmol/L (136-145)
[2022-10-14] MEDS: Levothyroxine Sodium 88 MCG TAB PO SCH (06:17)
[2022-10-14 06:22] LABS: Band 2 % (5-11); Eosinophils 7 % (0-10); Lymphocytes 32 % (21-51); MDiff Complete? YES; Metamyelocyte 1 % (0-0); Monocytes 12 % (0-10); Myelocyte 1 % (0-0); Neutrophil 45 % (42-75); Platelet Morphology Comment Appears Decreased; Polychromasia SLIGHT = 2-3 cells (100X) (0-2/hpf)
[2022-10-14] MEDS: traMADol HCl 50 MG TAB PO SCH ×2 (09:10→21:30)
[2022-10-14] MEDS: Famotidine 20 MG TAB PO SCH (09:10)
[2022-10-14] MEDS: Lisinopril 5 MG TAB PO SCH ×2 (09:11→21:31)
[2022-10-14] MEDS: Aspirin Chewable 81 MG TAB PO SCH (09:12)
[2022-10-14] MEDS: Calcium Carbonate 600 MG + Vit D TAB PO SCH (09:12)
[2022-10-14] MEDS: Potassium Chloride 20 MEQ TAB PO SCH (09:12)
[2022-10-14] MEDS: Spironolactone 25 MG TAB PO SCH (09:13)
[2022-10-14] MEDS: Metoprolol Tartrate 25 MG TAB PO SCH ×2 (09:13→21:32)
[2022-10-14] MEDS: Divalproex Sodium 125 mg Sprinkle Capsule PO SCH ×2 (09:14→21:30)
[2022-10-14] MEDS: Fluticasone Propionate Nasal Spray 16 gm Bottle NASAL SCH (09:15)
[2022-10-14] MEDS: Furosemide 20 MG TAB PO SCH (09:15)
[2022-10-14] MEDS: Gabapentin 100 MG CAP PO SCH (09:15)
[2022-10-14] MEDS: Sertraline 100 MG TAB PO SCH (09:15)
[2022-10-14] MEDS: Atorvastatin Calcium 20 MG TAB PO SCH (21:31)
[2022-10-14] MEDS: Mirtazapine 15 MG TAB PO SCH (21:31)
[2022-10-14] MEDS: Melatonin 3 MG TAB PO SCH (21:32)
[2022-10-15 06:17] LABS: #Basophils 0.1 thou/uL (0.0-0.2); #Eosinphils 0.5 thou/uL (0.0-0.7); #Lymphocytes 4.7 thou/uL (1.20-3.40); #Neutrophils 3.3 thou/uL (1.40-6.50); %Eosinophils 5.3 % (0.0-10.0); %Lymphocytes 48.9 % (21.0-51.0); %Monocytes 10.7 % (0.0-10.0); %Neutrophils 34.1 % (42.0-75.0); Hemoglobin 11.6 g/dL (12.0-16.0); Mean Corpuscular HGB CONC 33.1 g/dL (32.0-36.0); Mean Corpuscular Hemoglobin 32.6 pg (27.0-31.0); Mean Corpuscular Volume 98.7 fl (78.0-98.0); Mean Platelet Volume 9.4 fL (7.4-10.4); Platelet Count 122 10x3/uL (130-400); Red Blood Cell (RBC) Count 3.55 mill/uL (4.20-5.40); White Blood Cell (WBC) Count 9.5 10x3/uL (4.8-10.8)
[2022-10-15 06:34] LABS: Anion Gap 13 mmol/L (10-20); BUN (Urea Nitrogen) 23 mg/dL (9.8-20.1); Calc. Creatinine Clearance 48 mL/min (70-130); Calcium 8.8 mg/dL (7.8-10.44); Carbon Dioxide 24 mmol/L (23-31); Chloride 106 mmol/L (98-107); Estimated GFR 81; Glucose 79 mg/dL (83-110); Potassium 3.4 mmol/L (3.5-5.1); Sodium 140 mmol/L (136-145)
[2022-10-15] MEDS: Levothyroxine Sodium 88 MCG TAB PO SCH (06:44)
[2022-10-15] MEDS ORDERED: Electrolyte Replacement Protocol 1 EACH FS SCH (07:35)
[2022-10-15] MEDS ORDERED: Potassium Chloride 20 MEQ TAB PO SCH (07:45)
[2022-10-15] MEDS: Spironolactone 25 MG TAB PO SCH (09:09)
[2022-10-15] MEDS: Calcium Carbonate 600 MG + Vit D TAB PO SCH (09:09)
[2022-10-15] MEDS: Gabapentin 100 MG CAP PO SCH (09:09)
[2022-10-15] MEDS: Aspirin Chewable 81 MG TAB PO SCH (09:09)
[2022-10-15] MEDS: Sertraline 100 MG TAB PO SCH (09:09)
[2022-10-15] MEDS: Furosemide 20 MG TAB PO SCH (09:10)
[2022-10-15] MEDS: traMADol HCl 50 MG TAB PO SCH (09:10)
[2022-10-15] MEDS: Divalproex Sodium 125 mg Sprinkle Capsule PO SCH (09:11)
[2022-10-15] MEDS: Famotidine 20 MG TAB PO SCH (09:11)
[2022-10-15] MEDS: Lisinopril 5 MG TAB PO SCH (09:12)
[2022-10-15] MEDS: Metoprolol Tartrate 25 MG TAB PO SCH (09:13)
[2022-10-15] MEDS: Potassium Chloride 20 MEQ TAB PO SCH (09:13)
[2022-10-15] MEDS: Fluticasone Propionate Nasal Spray 16 gm Bottle NASAL SCH (09:13)
[2022-10-15 19:51] VITALS: BP 134/76; TEMP 97.9
[2022-10-20] MEDS ORDERED: Non-Formulary Item 1 EACH (Alendronate Sodium [Alendronate Sodium] 35 MG Tablet) PO SCH (09:00)
== END 2022-10-15 18:15 | DRG 100 ==
LOC: ERS 09:38 → ERHOLD 11:57 → T4-A 17:55 → NEURO 20:10 → OBSVTOIN 10-12 10:17
PROVIDERS: ADMIT Hospitalist; ATTEND Internal Medicine
DX: R56.9 Unspecified convulsions (principal); G93.41 Metabolic encephalopathy; U07.1 COVID-19; I50.43 Acute on chronic combined systolic (congestive) and diastolic (congestive) heart failure; R47.01 Aphasia; N17.9 Acute kidney failure, unspecified; I48.21 Permanent atrial fibrillation; I47.20 Ventricular tachycardia, unspecified; G45.9 Transient cerebral ischemic attack, unspecified; I25.10 Atherosclerotic heart disease of native coronary artery without angina pectoris; I11.0 Hypertensive heart disease with heart failure; R29.6 Repeated falls; E86.0 Dehydration; E87.5 Hyperkalemia; F32.A Depression, unspecified; E03.9 Hypothyroidism, unspecified; K21.9 Gastro-esophageal reflux disease without esophagitis; G93.89 Other specified disorders of brain; I95.1 Orthostatic hypotension; E11.9 Type 2 diabetes mellitus without complications; F03.C0 Unspecified dementia, severe, without behavioral disturbance, psychotic disturbance, mood disturbance, and anxiety; Z79.82 Long term (current) use of aspirin; Z91.018 Allergy to other foods; Z79.890 Hormone replacement therapy; Z79.899 Other long term (current) drug therapy; Z79.51 Long term (current) use of inhaled steroids; Z95.1 Presence of aortocoronary bypass graft; E87.6 Hypokalemia
CPT/HCPCS: 36415; 36416; 51701; 70450; 70551; 71045; 80048; 80053; 80202; 81003; 82550; 84145; 84443; 84484; 85025; 93005; 94760; 95816; 95819; 95957; 96360; 96361; 96365; 96372; 96375; 96376; G0378; J0692; J1650; J1953; J2405; J3370-JW; J3490; J7120

== ENCOUNTER 2023-02-05 13:35 | Emergency (ER) | payer MEDICARE, MEDICAID ==
[2023-02-05 14:13] LABS: #Eosinphils 0.3 thou/uL (0.0-0.7); #Monocytes 1.3 thou/uL (0.11-0.59); #Neutrophils 4.3 thou/uL (1.40-6.50); %Basophils 0.4 % (0.0-1.0); %Lymphocytes 37.3 % (21.0-51.0); %Monocytes 13.6 % (0.0-10.0); Hemoglobin 10.9 g/dL (12.0-16.0); Mean Corpuscular HGB CONC 31.7 g/dL (32.0-36.0); Mean Corpuscular Hemoglobin 31.5 pg (27.0-31.0); Mean Corpuscular Volume 99.4 fl (78.0-98.0); Mean Platelet Volume 11.8 fL (7.4-10.4); Platelet Count 131 10x3/uL (130-400); RBC Distribution Width 13.1 % (11.5-14.5); Red Blood Cell (RBC) Count 3.46 mill/uL (4.20-5.40); White Blood Cell (WBC) Count 9.5 10x3/uL (4.8-10.8)
[2023-02-05 14:43] LABS: ALT (SGPT) Less than 7 U/L (8-55); AST (SGOT) 16 U/L (5-34); Albumin 3.8 g/dL (3.4-4.8); Alkaline Phosphatase 51 U/L (40-110); Anion Gap 13 mmol/L (10-20); BUN (Urea Nitrogen) 25 mg/dL (9.8-20.1); Bilirubin, Total 0.5 mg/dL (0.2-1.2); CK (CPK) 24 U/L (29-168); Calc. Creatinine Clearance 0 mL/min (70-130); Carbon Dioxide 28 mmol/L (23-31); Chloride 105 mmol/L (98-107); Estimated GFR 58; Globulin 2.5 g/dL (2.4-3.5); Glucose 91 mg/dL (83-110); Potassium 4.6 mmol/L (3.5-5.1); Protein, Total 6.3 g/dL (5.8-8.1); Sodium 141 mmol/L (136-145)
[2023-02-05] MEDS ORDERED: Metoprolol Tartrate 5 MG/5 ML VIAL ONE ×2 (14:49→15:42)
[2023-02-05 15:34] LABS: Bacteria/HPF None Seen HPF (None Seen); Bilirubin Negative (Negative); Blood, Urine Negative (Negative); CAUTI Indications for Culture Alt mental st,lethar; Clarity Clear (Clear); Glucose, Urine (Dipstick) Normal (Negative); Ketone, Urine Negative (Negative); Leukocyte Negative Leu/uL (Negative); Nitrite Negative (Negative); Protein, Urine (Dipstick) Negative (Neg-Trace); RBC/HPF 0-3 HPF (0-3); Specific Gravity, Urine 1.016 (1.002-1.036); Squamous Epithelial None Seen HPF (0-3); Urobilinogen Normal mg/dL (Less than 2); WBC/HPF 0-3 HPF (0-3)
[2023-02-05 15:37] LABS: Urine Culture Reflex No No
[2023-02-05] MEDS ORDERED: Divalproex Sodium 250 MG (DR) TAB ONE (16:55)
== END 2023-02-05 17:19 | disposition home or self-care (01) ==
LOC: EDBD → ERS 13:35
DX: R53.1 Weakness (principal); R00.0 Tachycardia, unspecified; E11.9 Type 2 diabetes mellitus without complications; E78.5 Hyperlipidemia, unspecified; I10 Essential (primary) hypertension; K21.9 Gastro-esophageal reflux disease without esophagitis
CPT/HCPCS: 36415; 70450; 71045; 72125; 72170; 80053; 81001; 82550; 83880; 85025; 86140; 87086; 93005